=== PATIENT | male | born 1975 | race African-American/Black ===

== ENCOUNTER → 2018-08-13 | Outpatient (CLI) | payer OTHER ==
[~2018-08-13] MED LIST: GADOBUTROL 7.5 MMOL/7.5 ML VIAL INT ART ONE; IOHEXOL 300 MG/ML 50 ML VIAL. INT ART ONE; LIDOCAINE 1% Multi-Dose 20 ML VIAL. ID ONE
--- NOTE | 2018-08-13 16:34 | KCIC ---
MR arthrogram of the right hip Indication: Chronic hip pain, worsening the last 4 months. Pain since 2015. No known injury. Technique: Standard 4 plane sequences are obtained. Intra-articular contrast was injected by different radiologist, who will dictate that procedure as a separate report. Findings: Artifact: No significant image degradation. Bones: No bone lesion, acute fracture or acute bone marrow edema. No femoral head osteonecrosis. Joint: Primary osteoarthritis with mild osteophytes and chondromalacia. Labrum: Mild deformity, greatest anteriorly compatible with degeneration. Small linear defect is seen on the single sagittal slice compatible with a very small anterior tear. Sagittal series 8, image 9. Gluteus minimus tendon: Intact Gluteus medius tendon: Intact Hamstring tendon: Intact Iliopsoas tendon: Intact Rectus femoris tendon attachment: Intact Soft tissues:No significant abnormality. Impression: 1. Mild right hip primary osteoarthritis. 2. Suspect small anterior labral tear, note this is only clearly seen on a single slice. Electronically signed by: Ranjeet Grimaldo MD (08/13/2018 4:31 PM) [id number]
--- NOTE | 2018-08-13 17:25 | KCIC ---
Right hip injection using fluoroscopic guidance, prior to MR. HISTORY: Hip pain. Sharp right hip pain, worse for 4 months. TECHNIQUE: The procedure was explained to the patient as were potential risks, including among others infection, bleeding or allergic reaction. All questions were answered. Informed written and verbal consent was obtained. The hip region was prepped and draped in the usual sterile manner. Following administration of local anesthetic, a 22-gauge needle was advanced into the anterior hip. Following negative aspiration, 12 cc of a solution of 5cc Omnipaque-300 contrast, 5 cc 1% lidocaine, 10 cc normal saline, and 0.1 cc gadolinium was injected without difficulty. The needle was removed. There was good hemostasis at the injection site. The patient left in stable condition without immediate complication. A single spot image is obtained. FLUOROSCOPY TIME:?18 seconds Electronically signed by: Ranjeet Grimaldo MD (08/13/2018 5:22 PM) [id number]
== END | disposition home or self-care (01) ==
LOC: KCIC 14:14
PROVIDERS: ATTEND Orthopaedic Surgery Sports Medicine
DX: M16.11 Unilateral primary osteoarthritis, right hip (principal); M25.751 Osteophyte, right hip; M94.251 Chondromalacia, right hip; G89.29 Other chronic pain; I10 Essential (primary) hypertension
CPT/HCPCS: 73525; 73722; A9585; Q9967